=== PATIENT | female | born 1950 | race Caucasian/White ===

== ENCOUNTER 2016-11-17 07:28 | Day surgery (SDC) | payer BC ==
[~2016-11-17 07:28] MED LIST: ACET500CAP PO; ALBUTEROL5 INH; AMIT25 PO; ATV.5 PO; BACDS PO; CENTRUM PO; EMERGEN-C PO; FLONASE NAS; FLUCON2 PO; K-TABS10 MEQ PO; KDUR20 PO; KLOR-CON M2020 MEQ PO; LOP25 PO; MIRALAXPKT PO; PR25 PO; PROAIR HFA INH; PROTONIX PO; PVC V; REFRESH OPH SO0.3 ML OPH; REG PO; SENTAB PO; SYSTANE OPH; SYSTANE ULTR OPH; T PO; TESSALON200 MG PO; ULTRAM50 PO; VANCOCIN HCL125 MG PO; VANCOMYCIN PO; ZOFRAN8 PO; ZOVI800 PO; ZOVIRAX400 MG PO; ZYRTEC ALLGY10 MG PO
[2016-11-17 08:02] LABS: MEAN CORPUS HGB CONC 34.9 g/dL (32.0-36.0); PLATELET COUNT 149 10/3/uL (150-400); RED CELL COUNT 3.51 10/6/uL (4.0-5.6)
[2016-11-17 08:03] LABS: HEMATOCRIT 37.2 % (36.0-48.0); MANUAL DIFF YES %; RBC DISTRIBUTION WIDTH 12.6 % (12.0-16.0); RETICULOCYTE COUNT 1.2 % (0.5-2.5); RETICULOCYTE COUNT ABSOLUTE 41.4 10/3/uL (20.2-119.8); WHITE BLOOD CELLS 5.7 10/3/uL (4.5-10.5)
[2016-11-17 08:13] LABS: BUN (BLOOD UREA NITROGEN) 17 MG/DL (6-23); CALCIUM, SERUM 9.6 MG/DL (8.5-10.4); CHLORIDE, SERUM 106 MMOL/L (96-112); CO2 (CARBON DIOXIDE) 27 MMOL/L (24-34); CREATININE 1.02 MG/DL (0.55-1.02); GFR AFRICAN AMERICAN 66 ML/MIN (>=60); GFR NON AFRICAN AMERICAN 57 ML/MIN (>=60); GLUCOSE, SERUM 87 MG/DL (60-99); SODIUM, SERUM 142 MMOL/L (135-148)
[2016-11-17 08:14] LABS: POTASSIUM, SERUM 4.1 MMOL/L (3.5-5.3)
[2016-11-17 08:36] LABS: EOSINOPHILS 5 %; EOSINOPHILS ABSOLUTE (CALC) 0.29 10/3/uL (0.0-0.53); LYMPHOCYTES 67 %; LYMPHOCYTES ABSOLUTE (CALC) 3.82 10/3/uL (0.67-4.30); MONOCYTES 11 %; MONOCYTES ABSOLUTE (CALC) 0.63 10/3/uL (0.21-1.20); NEUTROPHILS ABSOLUTE (CALC) 0.97 10/3/uL (2.02-8.40); PLATELET ESTIMATE SLT DEC (ADEQUATE); SEGMENTED NEUTROPHIL (0) 17 %; TOTAL NUCLEATED CELLS 100
[2016-11-17 08:37] LABS: MACROCYTES 1+ (5-10/OIF) (0-5/OIF)
== END 2016-11-17 11:48 | disposition home or self-care (01) ==
LOC: SDC 07:28
PROVIDERS: Anesthesiology; Pathology Cytopathology
PROC: 07DR3ZX Extraction of Iliac Bone Marrow, Percutaneous Approach, Diagnostic (ICD-10-PCS; principal; 2016-11-17 10:00)
DX: C92.00 Acute myeloblastic leukemia, not having achieved remission (principal); Z88.6 Allergy status to analgesic agent; Z88.8 Allergy status to other drugs, medicaments and biological substances; Z90.49 Acquired absence of other specified parts of digestive tract; Z90.710 Acquired absence of both cervix and uterus; Z90.89 Acquired absence of other organs; Z98.890 Other specified postprocedural states
CPT/HCPCS: 80048; 85025; 85045; 88305; 88311; 88313; 88341; 88342; 88360; 88367

== ENCOUNTER 2016-11-26 15:36 | Observation (INO) | payer BC ==
--- NOTE | ~2016-11-26 | OP ---
Record Of Operation [facility] [address] [place]. [address] NAME: ALEX LOPEZ : 50 STATUS : ADM Hardeep PAT#: [id number] AGE: 66 ADM/REG DATE : 11/26/16 MR#: [id number] REPORT SERV DATE: 11/27/16 DICTATED BY: PHILIP RIVERA DATE: 11/27/16 REPORT STATUS : Draft TRANSCRIBED BY: MODL DATE: 11/27/16 DATE OF PROCEDURE: 11/27/2016 PREOPERATIVE DIAGNOSES: 1. Acute cholelithiasis with acute cholecystitis. 2. 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 POSTOPERATIVE DIAGNOSES: 1. Acute cholelithiasis with acute cholecystitis. 2. 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 PROCEDURE: Laparoscopic cholecystectomy. ANESTHESIA: General. SURGEON: Philip Rivera M.D. RESIDENTIAL REAL ESTATE AGENT: Oliver. COMPLICATION: None. DRAINS: None. ESTIMATED BLOOD LOSS: 20 mL. FINDINGS: The patient was noted to have acute cholecystitis with normal preoperative liver function studies and a normal sized cystic duct. She had significant pericholecystic fluid and dilation of a thickened gallbladder wall consistent with cholecystitis. OPERATIVE TECHNIQUE: The patient was brought to the operating room and placed on the table in supine position. She had preoperative IV antibiotics. She had sequential hose in place. She voided prior to procedure. She underwent general endotracheal anesthesia and was prepped and draped in sterile fashion. A time-out was completed. Local anesthesia was instilled to the periumbilical skin. A 15 blade knife was used to make incision through the base of the umbilicus. The skin and fascia were elevated. The Veress needle was inserted, and a water drop test safely performed. An 11 mm trocar was inserted through the umbilicus followed by the laparoscope. There was no evidence of Veress or trocar injury. She was then placed in reverse Trendelenburg and rolled to the left. An 11 mm subxiphoid and two 5 mm right upper quadrant trocars were placed under direct visualization. The gallbladder fundus was grasped and elevated over the liver edge as the infundibulum was retracted inferolaterally. The cystic duct gallbladder junction was identified on its lateral aspect and circumferentially dissected. Of note, there were significant adhesions of the duodenum to the gallbladder fundus, and these were carefully taken down with the aid of blunt dissection and the pericholecystic fluid between the tissues. At this point, the infundibulum was clearly identified and it was carefully dissected circumferentially with a [place] dissector until it was seen for several centimeters. It was then clipped twice Record Of Operation [facility] [address] [place]. [address] NAME: ALEX LOPEZ : 50 STATUS : ADM Hardeep PAT#: [id number] AGE: 66 ADM/REG DATE : 11/26/16 MR#: [id number] REPORT SERV DATE: 11/27/16 DICTATED BY: PHILIP RIVERA DATE: 11/27/16 REPORT STATUS : Draft TRANSCRIBED BY: SHAINA DATE: 11/27/16 proximally and distally and divided between the clips without encroachment of common bile duct. Dissection more medial revealed the cystic artery and it was carefully dissected for 360 degrees as well. It was then clipped twice proximally and distally and divided between the clips. The gallbladder was then removed from the fossa using electrocautery hook and extracted through the umbilicus. The laparoscope and trocar were reinserted. Examination of the hepatic fossa noted to be hemostatic. The clips were noted to be intact without encroachment of common bile duct. There was no evidence of any bleeding, biliary spillage, or other visual abnormalities. At this point, all the instruments and trocars removed under direct visualization. The pneumoperitoneum was aspirated. The umbilical fascia was reapproximated using a running 0 Vicryl suture. The skin edges were reapproximated using absorbable subcuticular Monocryl sutures. Dermabond was applied. She was extubated and taken to the recovery room in stable condition. All sponge and needle counts reported correct. KIM/SHAINA Philip Rivera M.D. / [id number] CC: Jocy Garcia M.D.
--- NOTE | ~2016-11-26 | HP ---
History And Physical [facility] [address] [place]. [address] NAME: ALEX LOPEZ : 50 STATUS : ADM Hardeep PAT#: [id number] AGE: 66 ADM/REG DATE : 11/26/16 MR#: [id number] REPORT SERV DATE: 11/27/16 DICTATED BY: PHILIP RIVERA DATE: 11/26/16 REPORT STATUS : Draft TRANSCRIBED BY: MODL DATE: 11/26/16 DATE OF ADMISSION: 11/26/2016 REASON FOR ADMISSION: Acute cholecystitis. HISTORY OF PRESENT ILLNESS: This pleasant 66-year-old female presents with acute onset of abdominal pain today. The pain was epigastric with no radiation, it was sharp and lasted for several hours and was relieved after evaluation in the emergency department and narcotics. She had a CT scan that revealed cholelithiasis with gallbladder wall thickening and an ultrasound that subsequently had found a pericholecystic fluid consistent with early acute cholecystitis. She has hypokalemia with a potassium of 3.3. 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 She has had some neutropenia, and I have asked Dr. Noam Palacios if this is a prohibitive risk for cholecystectomy and it is not felt that it would impede surgical planning. She does have significant discomfort and right upper quadrant on palpation with voluntary guarding. Her white blood cell count is normal. She is aware of the risks, benefits, and alternatives of laparoscopic possible open cholecystectomy and she wishes to proceed. PAST MEDICAL HISTORY: As above. PAST SURGICAL HISTORY: Bone marrow transplant, pelvic sling, hysterectomy, tubal ligation, and appendectomy. ALLERGIES: FLAGYL AND SPORANOX. MEDICATIONS: Please see hospital chart. SOCIAL HISTORY: The patient denies alcohol, tobacco, or illicit drug usage. She is and her is at the bedside. FAMILY HISTORY: Negative for blood-borne cancers. REVIEW OF SYSTEMS: The patient had nausea without vomiting. She had abdominal pain. She denies any bloody stools, change in the caliber of her stools, acholic stools, palmar erythema, itching, bright red blood per rectum, or melena. There is no chest pain or shortness of breath. PHYSICAL EXAMINATION: GENERAL: Well-developed female, in no apparent distress. NECK: Supple. No adenopathy. CARDIOVASCULAR: Regular rate and rhythm without murmur. RESPIRATORY: Clear to auscultation. ABDOMEN: Soft. The patient has right upper quadrant tenderness and epigastric tenderness with voluntary guarding. There are no masses. BACK: No CVA tenderness. EXTREMITIES: No clubbing, cyanosis, edema, or jaundice. History And Physical [address] [place]. [address] NAME: ALEX LOPEZ : 50 STATUS : ADM Hardeep PAT#: [id number] AGE: 66 ADM/REG DATE : 11/26/16 MR#: [id number] REPORT SERV DATE: 11/27/16 DICTATED BY: PHILIP RIVERA DATE: 11/26/16 REPORT STATUS : Draft TRANSCRIBED BY: SHAINA DATE: 11/26/16 ASSESSMENT: 1. Acute cholecystitis with gallbladder wall thickening, gallbladder stones and sludge, and pericholecystic fluid. 2. 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 3. Hypokalemia. PLAN: The patient will have IV fluids, IV antibiotics, and plan for laparoscopic cholecystectomy on 11/27/2016. She was informed of the risks, including bleeding, infection, poor cosmetic result, chronic pain, injury to common bile duct and other intraabdominal structures and wishes to proceed. She declines further observation. KIM/SHAINA Philip Rivera M.D. / [id number] CC: Philip Rivera M.D.
[2016-11-26 14:43] LABS: BASOPHILS 0.1 %; BASOPHILS ABSOLUTE 0.01 10/3/uL (0.0-0.16); EOSINOPHILS 1.7 %; EOSINOPHILS ABSOLUTE 0.12 10/3/uL (0.0-0.53); ER CBC TAT 0 Hrs 03 Mins; HEMATOCRIT 35.6 % (36.0-48.0); HEMOGLOBIN 12.7 g/dL (12.0-16.0); IMMATURE GRANULOCYTES 0.6 %; IMMATURE GRANULOCYTES ABSOLUTE 0.04 10/3/uL (0.0-0.11); LYMPHOCYTES 42.1 %; LYMPHOCYTES ABSOLUTE 3.06 10/3/uL (0.67-4.30); MEAN CORPUS HGB CONC 35.7 g/dL (32.0-36.0); MEAN CORPUSCULAR HEMOGLOB 36.6 pg (26.0-34.0); MEAN PLATELET VOLUME 8.9 fL (9.2-13.0); MONOCYTES 9.5 %; MONOCYTES ABSOLUTE 0.69 10/3/uL (0.21-1.20); NEUTROPHILS ABSOLUTE 3.35 10/3/uL (2.02-8.40); PLATELET COUNT 126 10/3/uL (150-400); RBC DISTRIBUTION WIDTH 12.6 % (12.0-16.0); RED CELL COUNT 3.47 10/6/uL (4.0-5.6); WHITE BLOOD CELLS 7.3 10/3/uL (4.5-10.5)
[2016-11-26 14:44] LABS: MANUAL DIFF NO %; MEAN CORPUSCULAR VOLUME 102.6 fL (80-100)
[2016-11-26 15:01] LABS: A/G RATIO 0.8 (0.7-1.9); ALBUMIN 3.9 G/DL (3.5-5.0); BUN (BLOOD UREA NITROGEN) 14 MG/DL (6-23); CALCIUM, SERUM 9.6 MG/DL (8.5-10.4); CHLORIDE, SERUM 108 MMOL/L (96-112); CO2 (CARBON DIOXIDE) 23 MMOL/L (24-34); CREATININE 0.84 MG/DL (0.55-1.02); GFR AFRICAN AMERICAN 84 ML/MIN (>=60); GFR NON AFRICAN AMERICAN 72 ML/MIN (>=60); GLOBULIN 4.6 G/DL (2.5-4.1); POTASSIUM, SERUM 3.3 MMOL/L (3.5-5.3); SGOT(AST) 53 U/L (5-40); SGPT(ALT) 35 U/L (5-65); SODIUM, SERUM 141 MMOL/L (135-148); TOTAL BILIRUBIN 0.7 MG/DL (0-1.2); TOTAL PROTEIN 8.5 G/DL (6.0-8.5); TROPONIN I <0.02 NG/ML (<0.05)
[2016-11-26 15:02] LABS: ALKALINE PHOSPHATASE 123 U/L (45-117); GLUCOSE, SERUM 114 MG/DL (60-99)
[2016-11-26 15:31] LABS: ASCORBIC ACID (UR NOT ORDER) NEG (NEG); BILIRUBIN, URINE NEGATIVE (NEG); KETONE, URINE NEGATIVE (NEG); LEUKOCYTE ESTERASE(NOT OR NEG (NEG); NITRITE (URINE) NEG (NEG); WBC (NOT ORDERED) (RFLEX) 3 (0-5)
[2016-11-26] MEDS ORDERED: ULTRAM50 PO (17:00)
[2016-11-26] MEDS ORDERED: KLOR-CON M2020 MEQ PO (17:00)
[2016-11-26] MEDS ORDERED: FLONASE NAS (17:01)
[2016-11-26] MEDS ORDERED: VITD PO (17:01)
[2016-11-26] MEDS ORDERED: PROAIR HFA INH (17:01)
[2016-11-26] MEDS ORDERED: ZOFRAN4 PO (17:02)
[2016-11-26] MEDS ORDERED: SYSTANE OPH (17:02)
[2016-11-27 04:13] LABS: BASOPHILS 0.4 %; BASOPHILS ABSOLUTE 0.02 10/3/uL (0.0-0.16); EOSINOPHILS 2.9 %; EOSINOPHILS ABSOLUTE 0.16 10/3/uL (0.0-0.53); HEMATOCRIT 35.7 % (36.0-48.0); HEMOGLOBIN 12.4 g/dL (12.0-16.0); IMMATURE GRANULOCYTES 0.2 %; IMMATURE GRANULOCYTES ABSOLUTE 0.01 10/3/uL (0.0-0.11); LYMPHOCYTES 60.9 %; LYMPHOCYTES ABSOLUTE 3.32 10/3/uL (0.67-4.30); MEAN CORPUS HGB CONC 34.7 g/dL (32.0-36.0); MEAN CORPUSCULAR HEMOGLOB 36.6 pg (26.0-34.0); MEAN CORPUSCULAR VOLUME 105.3 fL (80-100); MEAN PLATELET VOLUME 8.9 fL (9.2-13.0); MONOCYTES 11.6 %; MONOCYTES ABSOLUTE 0.63 10/3/uL (0.21-1.20); NEUTROPHILS ABSOLUTE 1.31 10/3/uL (2.02-8.40); PLATELET COUNT 132 10/3/uL (150-400); RBC DISTRIBUTION WIDTH 12.6 % (12.0-16.0); RED CELL COUNT 3.39 10/6/uL (4.0-5.6); WHITE BLOOD CELLS 5.5 10/3/uL (4.5-10.5)
[2016-11-27 04:18] LABS: MANUAL DIFF NO %
[2016-11-27 04:27] LABS: A/G RATIO 0.7 (0.7-1.9); ALBUMIN 3.3 G/DL (3.5-5.0); ALKALINE PHOSPHATASE 121 U/L (45-117); CALCIUM, SERUM 9.2 MG/DL (8.5-10.4); CHLORIDE, SERUM 110 MMOL/L (96-112); CREATININE 0.94 MG/DL (0.55-1.02); GFR AFRICAN AMERICAN 73 ML/MIN (>=60); GFR NON AFRICAN AMERICAN 63 ML/MIN (>=60); GLOBULIN 4.5 G/DL (2.5-4.1); POTASSIUM, SERUM 3.8 MMOL/L (3.5-5.3); SGOT(AST) 57 U/L (5-40); SGPT(ALT) 63 U/L (5-65); SODIUM, SERUM 144 MMOL/L (135-148); TOTAL BILIRUBIN 0.6 MG/DL (0-1.2); TOTAL PROTEIN 7.8 G/DL (6.0-8.5)
[2016-11-27 04:29] LABS: CO2 (CARBON DIOXIDE) 28 MMOL/L (24-34)
[2016-11-27 04:30] LABS: BUN (BLOOD UREA NITROGEN) 10 MG/DL (6-23); GLUCOSE, SERUM 91 MG/DL (60-99)
[2016-11-28 07:12] LABS: A/G RATIO 0.7 (0.7-1.9); CALCIUM, SERUM 8.7 MG/DL (8.5-10.4); CHLORIDE, SERUM 107 MMOL/L (96-112); CO2 (CARBON DIOXIDE) 26 MMOL/L (24-34); CREATININE 0.84 MG/DL (0.55-1.02); GFR AFRICAN AMERICAN 84 ML/MIN (>=60); GFR NON AFRICAN AMERICAN 72 ML/MIN (>=60); GLOBULIN 4.1 G/DL (2.5-4.1); GLUCOSE, SERUM 104 MG/DL (60-99); POTASSIUM, SERUM 3.5 MMOL/L (3.5-5.3); SGOT(AST) 41 U/L (5-40); SGPT(ALT) 51 U/L (5-65); SODIUM, SERUM 139 MMOL/L (135-148); TOTAL BILIRUBIN 0.8 MG/DL (0-1.2); TOTAL PROTEIN 7.1 G/DL (6.0-8.5)
[2016-11-28 07:13] LABS: ALKALINE PHOSPHATASE 103 U/L (45-117); BUN (BLOOD UREA NITROGEN) 6 MG/DL (6-23)
[2016-11-28] MEDS ORDERED: NORCO1 TAB PO (12:08)
== END 2016-11-28 12:54 | disposition home or self-care (01) ==
LOC: ER 15:36 → CDU1 18:12 → CDU2 19:29 → 5SO 11-27 12:58
PROVIDERS: Nurse Practitioner; Surgery
PROC: 0FT44ZZ Resection of Gallbladder, Percutaneous Endoscopic Approach (ICD-10-PCS; principal; 2016-11-27 09:15)
DX: K80.10 Calculus of gallbladder with chronic cholecystitis without obstruction (principal); E87.6 Hypokalemia; D64.9 Anemia, unspecified; I10 Essential (primary) hypertension; C92.Z0 Other myeloid leukemia not having achieved remission; Z94.81 Bone marrow transplant status; Z90.710 Acquired absence of both cervix and uterus; Z98.51 Tubal ligation status; Z90.49 Acquired absence of other specified parts of digestive tract; Z88.8 Allergy status to other drugs, medicaments and biological substances; Z87.891 Personal history of nicotine dependence; Z98.890 Other specified postprocedural states
CPT/HCPCS: 74176; 76705; 80053; 81001; 83690; 84484; 85025; 87015; 87040; 87070; 87075; 87102; 87116; 87205; 88304; 93005; 96374; 96375; 96376; 99285; A9270-GY; G0378; J1170; J2175; J2250; J2370; J2405; J2543; J2550; J2710; J3010; Q9967